=== PATIENT | male | born 1960 | race Caucasian/White ===

== ENCOUNTER 2019-07-25 15:52 | Emergency (ER) | payer MEDICAID ==
[~2019-07-25] VITALS: Ht 195.6 cm; Wt 129.3 kg
[2019-07-25 16:04] VITALS: BP_SYST 165
--- NOTE | 2019-07-25 17:30 | NUR ---
Patient to ER bed 8 to gown for evaluation. Side rails up.
--- NOTE | 2019-07-25 17:35 | NUR ---
PT C/O L ARM S/P FALL
--- NOTE | 2019-07-25 17:45 | NUR ---
BHUPENDRA Herndon at bedside examining patient.
[2019-07-25 19:15] VITALS: BP_SYST 152
--- NOTE | 2019-07-25 19:15 | NUR ---
Patient given written and verbal discharge instructions and verbalizes understanding. ER MD discussed with patient the results and treatment provided. Patient in stable condition. ID arm band removed. Rx of Tramadol and Naproxen given. Patient educated on pain management and to follow up with PMD. Pain Scale 0. Opportunity for questions provided and answered. Medication side effect fact sheet provided.
--- NOTE | 2019-07-26 17:30 | NUR ---
Note tone in EDM - 07/26/19 at 1939 by NUBIA Patient to bed 8 to [facility] for evaluation. Side rails up.
--- NOTE | 2019-07-26 17:30 | NUR ---
Note tone in EDM - 07/26/19 at 1939 by NUBIA Patient to bed 8 to [facility] for evaluation. Side rails up.
--- NOTE | 2019-07-26 17:45 | NUR ---
Moustapha wayne in EDM - 07/26/19 at 1940 by NUIBA BHUPENDRA Herndon at bedside examining patient.
== END 2019-07-26 19:15 | disposition home or self-care (01) ==
LOC: SED 15:52
DX: S49.92XA Unspecified injury of left shoulder and upper arm, initial encounter (principal); E11.9 Type 2 diabetes mellitus without complications; R03.0 Elevated blood-pressure reading, without diagnosis of hypertension; W01.198A Fall on same level from slipping, tripping and stumbling with subsequent striking against other object, initial encounter; Y93.89 Activity, other specified; Y92.89 Other specified places as the place of occurrence of the external cause; Y99.8 Other external cause status
CPT/HCPCS: 73030; 99283

== ENCOUNTER 2019-11-09 17:30 | Emergency (ER) | payer MEDICAID ==
[~2019-11-09] VITALS: Ht 195.6 cm; Wt 112.0 kg
[2019-11-09] MEDS ORDERED: FLUORESCEIN SODIUM 1 MG OPHTHALMIC STRIP OP ONE (17:31)
[2019-11-09] MEDS ORDERED: TETRACAINE HCL/PF 0.5% OPHTHALMIC DROPS 4 ML OP ONE (17:31)
[2019-11-09 17:33] VITALS: BP_SYST 166
[2019-11-09] MEDS ORDERED: PILOCARPINE 2% OPHTHALMIC DROPS (ISOPTO CARPINE) OP ONE (18:00)
[2019-11-09] MEDS ORDERED: TIMOLOL MALEATE 0.25% OPHTHALMIC DROPS 5 ML OP ONE (18:00)
[2019-11-09] MEDS ORDERED: KETOROLAC TROMETHAMINE 30 MG VIAL IM ONE (18:30)
[2019-11-09 18:41] VITALS: BP_SYST 172
== END 2019-11-09 18:41 | disposition home or self-care (01) ==
LOC: SED 17:30
DX: S05.01XA Injury of conjunctiva and corneal abrasion without foreign body, right eye, initial encounter (principal); E11.9 Type 2 diabetes mellitus without complications; X58.XXXA Exposure to other specified factors, initial encounter; Y93.89 Activity, other specified; Y92.89 Other specified places as the place of occurrence of the external cause; Y99.8 Other external cause status
CPT/HCPCS: 96372; 99283; J1885